=== PATIENT | male | born 1940 | race Asian ===

== ENCOUNTER → 2016-07-31 | Outpatient (CLI) | payer OTHER ==
[~2016-07-31] MED LIST: FLEXERIL10 M1 PO; NAPROSYN500 MG PO
--- NOTE | ~2016-07-31 | TM ---
[id number] NAME: SHANNA ESPINAL MR#: [id number] EXAM Treadmill stress test. PROCEDURE Resting heart rate 65, resting blood pressure 131/78 mmHg. Baseline EKG shows normal sinus rhythm. No significant ST-T wave changes. The patient was made to exercise on a standard [facility] protocol. Total exercise time was 4 minutes 35 seconds, completing 1 minute 35 seconds of stage 2 on a standard [facility] protocol. The test was stopped because of fatigue and increased shortness of breath. No complaints of chest pain. Maximum heart rate obtained was 148, which was 104% of the maximal predicted heart rate. Maximum blood pressure obtained was 180/[address]-T wave changes suggestive of ischemia. No arrhythmias noted. CONCLUSION 1. Poor exercise tolerance. 2. There is no clinical, hemodynamic or EKG evidence of ischemia at low to moderate workload (104% of the maximal predicted heart rate, 7.0 METS). 3. Normal heart rate and blood pressure response. 4. Normal regular treadmill stress test with poor baseline exercise tolerance. Dictated by.Adali Espinoza M.D. TD: 08/01/2016 12:10
== END | disposition home or self-care (01) ==
LOC: CEKG 09:00
DX: R07.9 Chest pain, unspecified (principal)
CPT/HCPCS: 93017